=== PATIENT | male | born 1990 | race Caucasian/White ===

== ENCOUNTER 2023-11-23 18:36 | Emergency (ER) | payer OTHER, SELFPAY ==
[2023-11-23 19:06] VITALS: BP 144/89
--- NOTE | 2023-11-23 23:34 | ED.MUSCINJ ---
HPI-Injury
General
Chief Complaint: Extremity Pain (non-traumatic)
Source: patient
Exam Limitations: none
Time Seen by Provider: 11/23/23 21:09
Nursing documentation reviewed up to this point in time: agreed with
Travel History
Have you had any contact with someone who has COVID-19?: No
Do you have any symptoms of coronavirus? Fever > 100 degrees, chills, cough, shortness of breath, sore throat, loss of taste or smell, muscle aches, or headache?: No
History of Present Illness-Injury
Is this injury a work related problem?: No
Is pt an associate of [facility]?: No
Initial Injury comments:
Patient to ED for eval of numbness and tingling to left great toe, loss of color to toe, left calf pain. Symptoms started tonight. The numbness and toe pallor resolved [employer]. Still with mild calf pain. NO other complaints. No prior history of same.
Past History
Past History
ED Past Medical History: None
ED Past Surgical History: None
Review of Systems
Review of Systems
Allergies reviewed?: Yes
All Other Systems: ROS reviewed and negative except as documented in HPI and ROS
Constitutional: Reports no symptoms
EENT: Reports no symptoms
Respiratory: Reports no symptoms
Cardiac: Reports no symptoms
ABD/GI: Reports no symptoms
Musculoskeletal: Reports other (left calf discomfort)
Skin: Reports other (Left great toe suddenly became white)
Neurological: Reports numbness (numbness and tingling to left great toe)
Psychiatric: Reports no symptoms
Phy Exam
General Physical Exam
General Presentation: well appearing and no apparent distress
General age: appears stated age
General Skin: warm and dry
General Habitus: normal
General Mental: alert
General Hydration: appears well hydrated
Musculoskeletal Exam
Musculoskeletal Exam: full ROM, neuro vasc intact and other (Left great toe pink and warm. Fulll ROM. +3 DP/PT pulses.)
Skin Exam
Skin Exam: normal color, warm/dry and no rash
Psychiatric Exam
Psychiatric Exam: normal mood/affect
Injury Course
Orders/Labs/Results
Orders:
Orders
11/23/23 21:17
Periph Venous Lwr Ext Left US [US Periph Venous LOWER Ext LT] Urgent
Comment:
Reason For Exam: left calf pain
*Radiology
Radiology exam reviewed: radiology read reviewed
*Pulse Oximetry
Patient hypoxic: no
*Critical Care Note
Total Time (30-74mins, 75-104mins- exclusive of procedures): Not Applicable
ED Attending Note
-
Portions of this chart may have been created with voice recognition software.� Occasional wrong word or��sound alike� substitutions may have occurred due to the inherent limitations of voice recognition software.
Discharge Plan
Departure
Patient Disposition: Home (Routine Discharge)
Date of Disposition: 11/23/23
Time of Disposition: 21:59
Patient with high blood pressure during this ER visit?: No
Condition: Good
Covid-19: Not Applicable
Discharge Problem:
Numbness of toes
Instructions: Raynaud disease
Referrals:
NONE,* [Family Provider] -
Activity Restrictions/Additional Instructions:
Follow up with your family doctor.
Interventions
Interventions:
*Risk Screen - Suicide Last Done: 11/23/23 19:06
*General Assessment Last Done: 11/23/23 19:06
*Neglect/Abuse Screening Last Done: 11/23/23 19:06
ED- Fall Risk Assessment Last Done: 11/23/23 19:06
*ED COVID-19 Vaccine History Last Done: 11/23/23 19:06
*Nursing Disposition Last Done: 11/23/23 22:37
ED-Skin Assessment Last Done: 11/23/23 20:52
ED-Peripheral Vascular Assessment Last Done: 11/23/23 20:52
ED-Musculoskeletal Assessment Last Done: 11/23/23 20:51
Discharge Date and Time
Discharge Date/Time: 11/23/23 22:38
== END 2023-11-23 22:38 | disposition home or self-care (01) ==
LOC: EMR 18:36
PROVIDERS: EMERGENCY PHYSICIAN Emergency Medicine
DX: R20.0 Anesthesia of skin (principal)
CPT/HCPCS: 99284; 93971

== ENCOUNTER → 2024-03-05 11:15 | Outpatient (REF) | payer OTHER, SELFPAY | LOC: HWRCS 11:15 | PROVIDERS: ATTENDING PHYSICIAN Internal Medicine Cardiovascular Disease; FAMILY PHYSICIAN Family Medicine | DX: R00.2 Palpitations (principal) | CPT/HCPCS: 93306 ==

== ENCOUNTER → 2025-03-13 07:43 | Outpatient (REF) | payer OTHER, SELFPAY | LOC: MRI 07:43 | PROVIDERS: ATTENDING PHYSICIAN Physician Assistant | DX: M54.50 Low back pain, unspecified (principal) | CPT/HCPCS: 72148 ==